=== PATIENT | male | born 1975 | race Caucasian/White ===

== ENCOUNTER 2021-03-18 21:23 | Inpatient (IN) | payer OTHER ==
[~2021-03-18] VITALS: Ht 170.2 cm; Wt 61.2 kg
[~2021-03-18 21:23] MED LIST: IBUPROFEN600 MG PO; ZOFRAN ODT 4 MG4 MG PO
[2021-03-18 23:57] LABS: HEMOGLOBIN 15.3 gm/dl (14.0-17.5); RED BLOOD COUNT 4.61 M/UL (4.20-5.50); WHITE BLOOD COUNT 7.3 K/UL (4.5-11.0)
[2021-03-19 00:03] LABS: BUN/CREATININE RATIO 6 (0-10)
[2021-03-19 03:40] LABS: HEMOGLOBIN 14.1 gm/dl (14.0-17.5); RED BLOOD COUNT 4.24 M/UL (4.20-5.50); WHITE BLOOD COUNT 8.7 K/UL (4.5-11.0)
[2021-03-19 04:07] LABS: BUN/CREATININE RATIO 9 (0-10)
[2021-03-19 10:46] LABS: BUN/CREATININE RATIO 11 (0-10)
--- NOTE | 2021-03-19 12:59 | NUR ---
PATIENT RETURNED TO FLOOR FROM SURGERY. RIGHT HAND IN BULKY SURGICAL DRESSING. ELEVATED RIGHT UPPER EXTREMITY. VITAL SIGNS WNL, NO SIGNS OF DISTRESS NOTED. PATIENT VOICES NO CONCERNS AT THIS TIME.
[2021-03-19] MEDS ORDERED: METFORMIN HCL1000 MG PO (17:34)
[2021-03-19] MEDS ORDERED: BASAGLAR K100 UNIT/1 SQ (17:35)
[2021-03-19] MEDS ORDERED: ADMELOG SO100 UNIT/1 SQ (17:38)
[2021-03-19] MEDS ORDERED: LISINOPRIL10 MG PO (17:39)
[2021-03-19] MEDS ORDERED: LIPITOR40 MG PO (17:39)
[2021-03-20 05:28] LABS: BUN/CREATININE RATIO 16 (0-10)
[2021-03-21 08:32] LABS: BUN/CREATININE RATIO 15 (0-10)
[2021-03-21 12:42] LABS: HEMOGLOBIN 13.2 gm/dl (14.0-17.5); RED BLOOD COUNT 4.02 M/UL (4.20-5.50); WHITE BLOOD COUNT 6.6 K/UL (4.5-11.0)
--- NOTE | 2021-03-21 17:45 | NUR ---
PT HAS DECIDED TO LEAVE AMA. HAS BEEN NOTIFIED OF THIS AND PT HAS BEEN EDUCATED ON THE DANGERS OF LEAVING AMA. PT STATES THEY UNDERSTAND THE DANGERS AND STILL WANT TO LEAVE. PT IS A&OX3 AND AMBULATORY.
== END 2021-03-21 17:52 | disposition left against medical advice (07) | DRG 580 ==
LOC: ER1 21:23 → CDU 03-19 00:48 → MED SURG 4 03-19 00:48
PROVIDERS: Internal Medicine Infectious Disease; Orthopaedic Surgery; Physician Assistant Medical; ADMIT Internal Medicine
PROC: 0JBJ0ZZ Excision of Right Hand Subcutaneous Tissue and Fascia, Open Approach (ICD-10-PCS; principal; 2021-03-19 11:39)
DX: L03.113 Cellulitis of right upper limb (principal); E44.0 Moderate protein-calorie malnutrition; L02.511 Cutaneous abscess of right hand; E11.65 Type 2 diabetes mellitus with hyperglycemia; Z20.822 Contact with and (suspected) exposure to COVID-19; E11.40 Type 2 diabetes mellitus with diabetic neuropathy, unspecified; F17.210 Nicotine dependence, cigarettes, uncomplicated; Z68.21 Body mass index [BMI] 21.0-21.9, adult; E87.6 Hypokalemia; I10 Essential (primary) hypertension; D69.6 Thrombocytopenia, unspecified; B95.62 Methicillin resistant Staphylococcus aureus infection as the cause of diseases classified elsewhere; Z86.19 Personal history of other infectious and parasitic diseases; Z79.4 Long term (current) use of insulin; Z79.899 Other long term (current) drug therapy
CPT/HCPCS: 36415; 80048; 80053; 80061; 80202; 80307; 82550; 82553; 82962; 83036; 83735; 83874; 84100; 84132; 84439; 84443; 84484; 85025; 85652; 86140; 87040; 87070; 87077; 87186; 87205; 93005; 96374; 96375; 99285; J0692; J1650; J2001; J2250; J2370; J2704; J3010; J3370; J7030; J7070; J7120; U0002